=== PATIENT | male | born 1995 | race African-American/Black ===

== ENCOUNTER 2018-11-04 00:07 | Emergency (ER) | payer SELFPAY ==
[2018-11-04] MEDS ORDERED: Lorazepam 2 MG/ML VIAL ONE (00:24)
[2018-11-04 00:53] LABS: Hemoglobin 16.5 g/dL (14.0-18.0); Mean Corpuscular Hemoglobin 30.6 pg (27.0-31.0); Mean Corpuscular Volume 92.8 fL (78.0-98.0); Platelet Count 326 thou/uL (130-400); RBC Distribution Width 12.6 % (11.5-14.5); Red Blood Cell (RBC) Count 5.41 mill/uL (4.70-6.10); White Blood Cell (WBC) Count 12.4 thou/uL (4.8-10.8)
[2018-11-04 01:05] LABS: ALT (SGPT) 14 U/L (8-55); AST (SGOT) 17 U/L (5-34); Albumin 4.1 g/dL (3.5-5.0); Alkaline Phosphatase 63 U/L (40-150); Anion Gap 24 mmol/L (10-20); BUN (Urea Nitrogen) 15 mg/dL (8.9-20.6); Bilirubin, Total 0.2 mg/dL (0.2-1.2); CK (CPK) 201 U/L (30-200); Calc. Creatinine Clearance 0 mL/min (70-130); Calcium 9.6 mg/dL (7.8-10.44); Carbon Dioxide 12 mmol/L (22-29); Chloride 108 mmol/L (98-107); Estimated GFR-MDRD 69; Glucose 126 mg/dL (70-105); Potassium 4.1 mmol/L (3.5-5.1); Protein, Total 7.1 g/dL (6.0-8.3); Sodium 140 mmol/L (136-145)
[2018-11-04 01:21] LABS: Eosinophils 3 % (0-10); Lymphocytes 57 % (21-51); MDiff Complete? YES; Monocytes 8 % (0-10); Neutrophil 26 % (42-75); Reactive Lymphocytes 6 % (0-10)
[2018-11-04 01:30] LABS: Lactic Acid 13.1 mmol/L (0.5-2.2)
[2018-11-04 01:57] LABS: Acetaminophen Less than 6.0 mcg/mL (10.0-30.0); Alcohol Less than 10 mg/dL (Less than 10); Salicylate Less than 8.0 mg/dL (15.0-30.0)
[2018-11-04 02:41] LABS: Lactic Acid 2.9 mmol/L (0.5-2.2)
--- NOTE | 2018-11-04 07:46 | RAD ---
CHEST 1 VIEW: HISTORY: Chest pain, shortness of breath. COMPARISON: None. FINDINGS: Lungs are clear. No pneumothorax or effusion. Cardiac silhouette and mediastinal contours are withi n normal limits. No acute osseous abnormality. IMPRESSION: No acute intrathoracic abnormality. POS: [facility]
--- NOTE | 2018-11-04 07:55 | RAD ---
RIGHT HAND THREE VIEWS: HISTORY: Pain. COMPARISON: None. FINDINGS: There is ossification along the volar aspect of the thumb metacarpal head, which may be sequela of an old injury. No acute displaced fracture or malalignment. IMPRESSION: Likely an old injury to the volar plate of the thumb metacarpophalangeal joint. No acute fracture or malalignment. POS: [facility]
== END 2018-11-04 03:57 ==
LOC: ERS 00:07 → EEVIPCON 00:07 → ERS 03:57
DX: S20.412A Abrasion of left back wall of thorax, initial encounter (principal); R07.89 Other chest pain; J45.909 Unspecified asthma, uncomplicated; F17.210 Nicotine dependence, cigarettes, uncomplicated; Z71.6 Tobacco abuse counseling; W03.XXXA Other fall on same level due to collision with another person, initial encounter
CPT/HCPCS: 36415; 71045; 80053; 80307; 82010; 82550; 83605; 84484; 85025; 93005; 94640; 96361; 96374; 99406; J2060; J7620